=== PATIENT | male | born 2000 | race Caucasian/White ===

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

== ENCOUNTER 2021-02-19 17:23 | Emergency (ER) | payer OTHER ==
[2021-02-19 17:43] VITALS: TEMP 98.1; BMI 31.1
[2021-02-19] MEDS ORDERED: methylPREDNISolone NA SUCC 125 MG/2 ML VIAL IVPUSH ONE (17:59)
[2021-02-19] MEDS ORDERED: SODIUM CHLORIDE 0.9% 500 ML INFUS.BAG IV ONE (18:01)
[2021-02-19] MEDS ORDERED: methylPREDNISolone NA SUCC 125 MG/2 ML VIAL ONE ×2 (18:36→19:36)
[2021-02-19 19:54] LABS: BASO % 2.2 % (0-2.0); EOS % 2.4 % (0-4.5); HEMATOCRIT 49.1 % (35.4-49); HEMOGLOBIN 16.2 GM/dL (11.7-16.9); MCH 24.3 pg (25.7-33.7); MEAN CELL VOLUME 73.8 fl (80-96); MEAN PLT VOLUME 7.7 fl (7.5-11.1); MONO % 6.7 % (3.8-10.2); NEUT % 68.7 % (42.8-82.8); PLATELET COUNT 276 10^3/uL (134-434); RBC 6.66 M/mm3 (4.00-5.60); RDW 13.8 % (11.9-15.9)
[2021-02-19 20:00] LABS: INR 1.14 (0.83-1.09); PROTHROMBIN TIME (PATIENT) 13.1 SEC (9.7-13.0)
[2021-02-19 20:03] LABS: ACTIVATED PTT 36.8 SECONDS (25.2-36.5)
[2021-02-19 20:09] LABS: CHLORIDE 108 mmol/L (98-107); SODIUM 140 mmol/L (136-145)
[2021-02-19 20:11] LABS: ANION GAP 7 MMOL/L (8-16); BLOOD UREA NITROGEN 20.2 mg/dL (7-18); CALCIUM 9.1 mg/dL (8.5-10.1); CO2 25 mmol/L (21-32); GLUCOSE,RANDOM 93 mg/dL (74-106)
[2021-02-19 20:12] LABS: ALBUMIN 4.8 g/dl (3.4-5.0)
[2021-02-19 20:14] LABS: SGOT/AST 25 U/L (15-37)
[2021-02-19 20:15] LABS: CREATININE 1.1 mg/dL (0.55-1.3); SGPT/ALT 55 U/L (13-61)
[2021-02-19 20:16] LABS: BILIRUBIN,TOTAL 0.4 mg/dL (0.2-1)
[2021-02-19 20:17] LABS: ALK PHOS 59 U/L (45-117)
[2021-02-20 00:06] VITALS: BP 144/83; PULSE 96
== END 2021-02-20 00:12 | disposition home or self-care (01) ==
LOC: JER 17:23
DX: R07.89 Other chest pain (principal)
CPT/HCPCS: 36415; 71275-TC; 80053; 84484; 85025; 85379; 85610; 85730; 99285-25; Q9967